=== PATIENT | male | born 1955 | race Caucasian/White ===

== ENCOUNTER 2018-08-30 10:14 | Emergency (ER) | payer OTHER ==
[2018-08-30] MEDS: SOD CHLORIDE 0.9% 500 ML IV (10:37)
[2018-08-30] MEDS: FENTAnyl 50 MCG/ML VIAL IV (10:37)
[2018-08-30 10:54] LABS: ADD MAN DIFF? NO
[2018-08-30 11:00] LABS: WHITE BLOOD COUNT 5.7 10^3/ul (4.8-10.8)
[2018-08-30 11:00] LABS: BASOPHILS % 0.3 % (0.0-2.0); EOSINOPHILS # 0.1 10^3/ul (0.0-0.5); HEMATOCRIT 37.4 % (42.0-52.0); HEMOGLOBIN 12.8 g/dl (14.0-18.0); LYMPHOCYTES # 1.9 10^3/ul (0.8-2.9); LYMPHOCYTES % 32.9 % (15.0-51.0); MEAN CORPUSCULAR HEMOGLOBIN 29.3 pg (29.0-33.0); MEAN CORPUSCULAR HGB CONC 34.2 g/dl (32.0-37.0); MEAN CORPUSCULAR VOLUME 85.6 fl (82.0-101.0); MEAN PLATELET VOLUME 10.6 fl (7.4-10.4); MONOCYTE # 0.4 10^3/ul (0.3-0.9); MONOCYTES % 7.5 % (0.0-11.0); NEUTROPHIL # 3.3 10^3/ul (1.6-7.5); PLATELET COUNT 156 10^3/UL (140-415); RED BLOOD COUNT 4.37 10^6/ul (4.70-6.10); RED CELL DISTRIBUTION WIDTH 11.5 % (11.5-14.5)
[2018-08-30 11:20] LABS: ALANINE AMINOTRANSFERASE 68 IU/L (13-69); ALBUMIN 4.4 g/dl (3.3-4.9); ALKALINE PHOSPHATASE 76 IU/L (42-121); ANION GAP 9 (5-13); ASPARTATE AMINO TRANSFERASE 53 IU/L (15-46); BILIRUBIN,INDIRECT 0.4 mg/dl (0-1.1); BILIRUBIN,TOTAL 0.4 mg/dl (0.2-1.3); BLOOD UREA NITROGEN 21 mg/dl (7-20); CALCIUM 8.8 mg/dl (8.4-10.2); CARBON DIOXIDE 26 mmol/L (21-31); CHLORIDE 105 mmol/L (97-110); CREATININE 0.79 mg/dl (0.61-1.24); Estimated GFR > 60 mL/min (>60); GLUCOSE 110 mg/dl (70-220); POTASSIUM 3.9 mmol/L (3.5-5.1); SODIUM 140 mmol/L (135-144); TOTAL PROTEIN 7.2 g/dl (6.1-8.1)
[2018-08-30 11:22] LABS: INR 0.89; PROTIME 12.1 Sec (11.9-14.9); PT RATIO 0.9
[2018-08-30 11:31] LABS: TROPONIN-I < 0.012 ng/ml (0.000-0.120)
[2018-08-30] MEDS: SOD CHLORIDE 0.9% 100 ML (12:01)
[2018-08-30] MEDS: IOHEXOL 300MG/ML 150 ML BTL (12:02)
[2018-08-30] MEDS: HYDROmorphONE 0.5 MG/0.5 ML SYG IV (12:30)
[2018-08-30] MEDS ORDERED: ONDANSETRON 4 MG INJ IV (15:00)
[2018-08-30] MEDS ORDERED: ACETAMINOPHEN 325 MG TAB PO (15:00)
== END 2018-08-30 15:08 | disposition short-term general hospital (02) ==
LOC: E/R 10:14
DX: S22.41XA Multiple fractures of ribs, right side, initial encounter for closed fracture (principal); J93.9 Pneumothorax, unspecified; R06.02 Shortness of breath; R04.89 Hemorrhage from other sites in respiratory passages; S52.615A Nondisplaced fracture of left ulna styloid process, initial encounter for closed fracture; S52.515A Nondisplaced fracture of left radial styloid process, initial encounter for closed fracture; D64.9 Anemia, unspecified; R40.2142 Coma scale, eyes open, spontaneous, at arrival to emergency department; R40.2252 Coma scale, best verbal response, oriented, at arrival to emergency department; R40.2362 Coma scale, best motor response, obeys commands, at arrival to emergency department; I10 Essential (primary) hypertension; E11.9 Type 2 diabetes mellitus without complications; V49.40XA Driver injured in collision with unspecified motor vehicles in traffic accident, initial encounter
CPT/HCPCS: 29125; 71045; 71260; 73110-LT; 73630-LT; 74177; 80048; 80076; 84484; 85025; 85610; 85730; 86850; 86900; 86901; 96374; 96375; 99285-25

== ENCOUNTER 2019-07-30 10:19 | Emergency (ER) | payer OTHER | END 2019-07-30 15:50 | disposition home or self-care (01) | LOC: E/R 10:19 | DX: R07.9 Chest pain, unspecified (principal); I10 Essential (primary) hypertension; E11.9 Type 2 diabetes mellitus without complications; Z79.84 Long term (current) use of oral hypoglycemic drugs | CPT/HCPCS: 36415; 71045; 80048; 84484; 85025; 93005; 99285-25 ==